=== PATIENT | male | born 1965 | race Hispanic/Latino ===

== ENCOUNTER 2017-03-31 11:14 | Emergency (ER) | payer OTHER ==
[2017-03-31 12:21] VITALS: BP 128/89
--- NOTE | 2017-03-31 15:05 | XRay Report ---
LEFT ELBOW: History: Pain after trauma. The bony architecture is intact without evidence of fracture or dislocation. No significant soft tissue abnormality is seen. IMPRESSION: Normal left elbow.
--- NOTE | 2017-03-31 15:06 | XRay Report ---
LEFT SHOULDER: History: Pain after trauma. Routine views demonstrate normal bony and soft tissue structures with normal joint alignment of the shoulder. IMPRESSION: Normal study.
[2017-03-31] MEDS ORDERED: BOOSTRIX IM ONE (17:22)
[2017-03-31] MEDS ORDERED: NORCO 10/325 PO ONE (17:22)
[2017-03-31] MEDS ORDERED: TRIPLE ANTIBIOTIC TP ONE (17:23)
[2017-03-31] MEDS ORDERED: ZOFRAN ODT PO ONE (17:23)
[2017-03-31] MEDS ORDERED: XYLOCAINE 2% INFILTRATI ONE (17:27)
--- NOTE | 2017-03-31 17:27 | Emergency Department Report ---
Upper Extremity - HPI Chief Complaint: Extremity Injury, Upper Stated Complaint: LEFT ARM LACERATION/PAIN Time Seen by Provider: 03/31/17 17:11 Upper Extremity: Left Elbow Severity: moderate Symptoms: Yes Pain with Movement, Yes Swelling, Yes Bruising/Ecchymosis, Yes Laceration or Abrasion, No Deformity, No Limited Range of Movement, No Numbness , No Weakness Other History: 52-year-old male past medical history none presents with complaint of left elbow pain and left shoulder pain status post mechanical fall. Patient states that while standing in the back of his truck he lost his footing and fell backward onto his left elbow. Patient states he felt immediate pain after hitting the ground. Denies any loss of consciousness denies any injury to any other body part states that he primarily fell onto his left side on left elbow and left shoulder. Patient is awake alert and oriented 3 accompanied by at bedside. Fully lucid and conversant. Patient has a large visible laceration at lateral aspect of the left elbow. Unsure of tetanus vaccine status. ED Review of Systems ROS: Stated complaint: LEFT ARM LACERATION/PAIN Other details as noted in HPI Constitutional: denies: chills, fever Eyes: denies: eye pain, eye discharge, vision change ENT: denies: ear pain, throat pain Respiratory: denies: cough, shortness of breath, wheezing Cardiovascular: denies: chest pain, palpitations Endocrine: no symptoms reported Gastrointestinal: denies: abdominal pain, nausea, diarrhea Genitourinary: denies: urgency, dysuria Musculoskeletal: denies: back pain, joint swelling, arthralgia Skin: denies: rash, lesions Neurological: denies: headache, weakness, paresthesias Psychiatric: denies: anxiety, depression Hematological/Lymphatic: denies: easy bleeding, easy bruising ED Past Medical Hx - Past Medical History Previous Medical History?: No - Surgical History Additional Surgical History: hernia repair as baby - Social History Smoking Status: Former Smoker Substance Use Type: Alcohol - Medications Home Medications: Home Medications Medication Instructions Recorded Confirmed Last Taken Type Acetaminophen/Codeine [Tylenol 1 tab PO Q6H PRN #12 tab 03/31/17 Unknown Rx /Codeine # 3 tab] Cephalexin [Keflex] 500 mg PO Q12HR #14 cap 03/31/17 Unknown Rx Ibuprofen [Motrin] 800 mg PO Q8HR PRN #30 tablet 03/31/17 Unknown Rx Upper Extremity Exam - Exam General: Vital signs noted. No distress. Alert and acting appropriately. Head and Torso: No HEENT Abnormality, No Neck Tenderness (no clinical posterior neck tenderness on exam), No Chest/Lungs Abnormality (no clinical signs of ecchymosis chest wall), No Abdominal Tenderness (abdomen soft nontender nondistended), No Back Tenderness (no cervical thoracic or lumbar spinal tenderness on clinical exam) Shoulder Exam: Yes Shoulder Tenderness (left upper deltoid discomfort on palpation), Yes Normal Range of Motion in Shoulder, No Clavicle Tenderness, No Shoulder Deformity, No AC Joint Tenderness Arm Exam: No Arm/Humerus Tenderness, No Arm Deformity Elbow: Yes Normal Range of Motion in Elbow (flexion, extension, pronation and supination), No Elbow Tenderness, No Elbow Deformity Forearm: No Forearm Tenderness, No Forearm Deformity, No Pain with Pronation, No Pain with Supination Wrist: Yes Normal ROM in Wrist (flexuion and extension intact), No Wrist Tenderness, No Wrist Deformity, No Snuffbox Tenderness, No Pain with Axial Thumb Compression Hand: Yes Normal ROM in Digit(s) (fingers ROM DIP, PIP, MCP fully intact left hand), No Hand Tenderness, No Hand Deformity, No Digit Tenderness, No Digit(s) Deformity, No Tendon Dysfunction CMS Exam: Yes Normal Distal Pulses (distal pulses left hand and fingers fully intact distal radial ulnar and brachial pulses intact), Yes Normal Capillary Refill, Yes Normal Distal Sensation (sensation all fingers fully intact), No Broken Skin Front/Back of Body, Lg (Color): 1 - Laceration here approximately 5 cm in length ED Course Vital Signs 03/31/17 12:18 Temperature 97.6 F Pulse Rate 73 Respiratory 18 Rate Blood Pressure 128/89 O2 Sat by Pulse 96 Oximetry - Laceration /Wound Repair Left Lateral Elbow Wound Location: upper extremity (left elbow laceration) Wound Length (cm): 5 Wound's Depth, Shape: irregular (J-shaped laceration) Irrigated w/ Saline (ccs): 500 Betadine Prep?: Yes Anesthesia: 1% Lidocaine Volume Anesthetic (ccs): 6 Wound Debrided: minimal Wound Repaired With: sutures Suture Size/Type: 3:0, nylon Number of Sutures: 7 Layer Closure?: No Sterile Dressing Applied?: Yes Progress: Area infiltrated with lidocaine good local anesthesia achieved. Wound irrigated with approximately 500 mL of saline. Wound approximated with 7 Prolene sutures. Good approximation achieved. Procedure tolerated well with minimal bleeding Triple antibiotic ointment and sterile gauze applied over then wrapped with Kerlix gauze ED Medical Decision Making - Medical Decision Making A/P: left elbow laceration, left shoulder contusion 1-sutures to be removed in 7-10 days 2-tetanus vaccine up-to-date as of 2014 per patient 3-Motrin when necessary, triple antibiotic ointment, short course Keflex 4- pt advised to return to the ED for any fevers chills pus drainage erythema at site of laceration 5- x-rays left elbow and left shoulder unremarkable no fractures. Range of motion preserved and intact left shoulder left elbow no signs of injury to hand wrist or mid left humerus region. 6- follow-up with primary care and orthopedics 7- NEXUS criteria negative, no clinical sings of head, neck, trunk or abdominal trauma Critical care attestation.: If time is entered above; I have spent that time in minutes in the direct care of this critically ill patient, excluding procedure time. ED Disposition Clinical Impression: Contusion of left shoulder Qualifiers: Encounter type: initial encounter Qualified Code(s): S40.012A - Contusion of left shoulder, initial encounter Laceration of left elbow Qualifiers: Encounter type: initial encounter Qualified Code(s): S51.012A - Laceration without foreign body of left elbow, initial encounter Disposition: TO HOME OR SELFCARE Is pt being admited?: No Does the pt Need Aspirin: No Condition: Stable Instructions: Suture Care (ED), Laceration (ED), Elbow Sprain (ED), Shoulder Sprain (ED), RICE Therapy (ED) Additional Instructions: Sutures to be removed in 7-10 days Prescriptions: Acetaminophen/Codeine [Tylenol /Codeine # 3 tab] 1 tab PO Q6H PRN #12 tab PRN Reason: Pain Cephalexin [Keflex] 500 mg PO Q12HR #14 cap Ibuprofen [Motrin] 800 mg PO Q8HR PRN #30 tablet PRN Reason: Pain Referrals: [facility] [Outside] - 3-5 Days [facility] [Outside] - 3-[facility] Days [facility]5 Days Forms: Accompanied Note, Work/School Release Form(ED) Time of Disposition: 19:13
== END 2017-03-31 19:22 | disposition home or self-care (01) ==
LOC: ED 11:14
DX: S51.012A Laceration without foreign body of left elbow, initial encounter (principal); S40.012A Contusion of left shoulder, initial encounter; Z87.891 Personal history of nicotine dependence; W01.198A Fall on same level from slipping, tripping and stumbling with subsequent striking against other object, initial encounter; Y93.89 Activity, other specified; Y92.89 Other specified places as the place of occurrence of the external cause; Y99.8 Other external cause status
CPT/HCPCS: 90715; A6250; Q0162